=== PATIENT | female | born 1995 | race Two or more races ===

== ENCOUNTER 2021-12-10 13:08 | Inpatient (IN) | payer MEDICAID, OTHER ==
[~2021-12-10] VITALS: Ht 167.6 cm; Wt 95.5 kg
[2021-12-10] MEDS ORDERED: OLANZapine 5 MG RAPDIS TABLET PO PRN (14:30)
[2021-12-10] MEDS: LORazepam 2 MG TABLET PO PRN (16:01)
[2021-12-10] MEDS ORDERED: LORazepam 2 MG/ML VIAL IM ONE (16:15)
[2021-12-10] MEDS ORDERED: HALOPERIDOL LACTATE 5 MG/ML VIAL IM ONE (16:15)
[2021-12-10] MEDS ORDERED: DiphenhydrAMINE HCL 50 MG/ML VIAL IM ONE (16:15)
[2021-12-10 17:32] LABS: COVID AG,FIA SOURCE NASAL SWAB
[2021-12-10 22:22] VITALS: BP 109/55
[2021-12-10 22:24] VITALS: BP 109/55
[2021-12-11 00:19] VITALS: BP 102/61
[2021-12-11 07:02] LABS: BASOPHILS % (AUTO) 0.9 % (0.0-2.0); EOSINOPHILS % (AUTO) 2.1 % (1.0-6.0); HEMATOCRIT 38.4 % (36-46); LYMPHOCYTES # (AUTO) 1.3 K/uL (1.0-4.8); LYMPHOCYTES % (AUTO) 26.7 % (22.0-44.0); MEAN CORPUSCULAR HEMOGLOBIN 28.7 pg (26.0-34.0); MEAN CORPUSCULAR HGB CONC 33.9 G/dL (31.0-37.0); MEAN CORPUSCULAR VOLUME 85 fL (80-100); MONOCYTES # (AUTO) 0.4 K/uL (0.1-1.0); MONOCYTES % (AUTO) 8.1 % (2.0-9.0); NEUTROPHILS # (AUTO) 3.1 K/uL (1.8-7.7); NEUTROPHILS % (AUTO) 62.2 % (40.0-70.0); PLATELET COUNT (AUTO) 275 K/uL (150-450); RED BLOOD CELL COUNT(AUTO) 4.53 MIL/uL (4.00-5.20); RED CELL DISTRIBUTION WIDTH 14.8 % (11.5-14.5)
[2021-12-11 07:07] LABS: ANION GAP 6 mmol/L (8-16); CALCIUM, TOTAL 8.3 mg/dL (8.8-10.5); CARBON DIOXIDE 28 mmol/L (22-29); CHLORIDE 105 mmol/L (98-107); CREATININE 0.66 mg/dL (0.60-1.30); GLOMERULAR FILTR. RATE CALC > 60 mL/min (>60); GLUCOSE,RANDOM 83 mg/dL (70-110); POTASSIUM 3.7 mmol/L (3.5-5.1); SODIUM SERUM 139 mmol/L (136-145); UREA NITROGEN, BLOOD 11 mg/dL (7-18)
[2021-12-11] MEDS ORDERED: LOPERAMIDE HCL 2 MG CAPSULE PO PRN (08:15)
[2021-12-11] MEDS ORDERED: MAGNESIUM HYDROXIDE SUSPENSION 30 ML UDCUP PO PRN (08:15)
[2021-12-11] MEDS ORDERED: IBUPROFEN 600 MG TABLET PO PRN (08:15)
[2021-12-11] MEDS ORDERED: ONDANSETRON HCL 4 MG TABLET PO PRN (08:15)
[2021-12-11] MEDS ORDERED: BENZOCAINE/MENTHOL LOZENGE PO PRN (08:15)
[2021-12-11] MEDS ORDERED: MAG HYDROX/AL HYDROX/SIMETH ES 30 ML SUSPENSION UDCUP PO PRN (08:15)
[2021-12-11] MEDS ORDERED: PETROLATUM,WHITE 28 GM JELLY TP PRN (08:15)
[2021-12-11] MEDS ORDERED: CloNIDine HCL 0.1 MG TABLET PO PRN (08:15)
[2021-12-11] MEDS ORDERED: ALBUTEROL SULFATE HFA 90 MCG/PUFF 8 GM INHALER IH PRN (08:15)
[2021-12-11] MEDS ORDERED: BACITRACIN 28 GM OINTMENT TP PRN (08:15)
[2021-12-11] MEDS ORDERED: OMEPRAZOLE 20 MG CAPSULE PO PRN (08:15)
[2021-12-11] MEDS ORDERED: ACETAMINOPHEN 325 MG TABLET PO PRN (08:15)
[2021-12-11] MEDS ORDERED: DOCUSATE SODIUM 100 MG CAPSULE PO PRN (08:15)
[2021-12-11 17:10] VITALS: BP 102/67
[2021-12-12 05:52] VITALS: BP 113/68
[2021-12-12 08:30] VITALS: BP 126/78
[2021-12-12 16:18] VITALS: BP 112/70
[2021-12-12] MEDS: RisperiDONE 1 MG TABLET PO SCH (16:29)
[2021-12-13] MEDS: RisperiDONE 1 MG TABLET PO SCH ×2 (09:00→17:00)
[2021-12-13] MEDS ORDERED: DiphenhydrAMINE HCL 50 MG/ML VIAL IM ONE (15:30)
[2021-12-13] MEDS ORDERED: LORazepam 2 MG/ML VIAL IM ONE (15:30)
[2021-12-13] MEDS ORDERED: HALOPERIDOL LACTATE 5 MG/ML VIAL IM ONE (15:30)
[2021-12-13 17:30] VITALS: BP 137/87
[2021-12-14 00:40] VITALS: BP 118/74
[2021-12-14 08:13] VITALS: BP 118/62
[2021-12-14] MEDS: RisperiDONE 1 MG TABLET PO SCH ×2 (08:56→17:00)
[2021-12-14 17:30] VITALS: BP 114/70
[2021-12-15 00:55] VITALS: BP 110/64
[2021-12-15 08:28] VITALS: BP 118/74
[2021-12-15] MEDS: RisperiDONE 1 MG TABLET PO SCH ×2 (08:29→17:00)
[2021-12-15 16:18] VITALS: BP 135/80
[2021-12-16 05:16] VITALS: BP 118/72
[2021-12-16] MEDS: RisperiDONE 1 MG TABLET PO SCH ×2 (09:00→17:00)
[2021-12-16 16:10] VITALS: BP 137/91
[2021-12-16] MEDS: ZOLPIDEM TARTRATE 10 MG TABLET PO PRN (22:19)
[2021-12-17 00:52] VITALS: BP 131/81
[2021-12-17] MEDS: RisperiDONE 1 MG TABLET PO SCH ×2 (08:04→16:58)
[2021-12-17] MEDS: LORazepam 2 MG TABLET PO PRN ×2 (12:25→21:48)
[2021-12-17 16:44] VITALS: BP 118/89
[2021-12-17] MEDS: ZOLPIDEM TARTRATE 10 MG TABLET PO PRN (20:52)
[2021-12-18] MEDS: RisperiDONE 1 MG TABLET PO SCH ×2 (08:24→17:00)
[2021-12-18 09:24] VITALS: BP 113/63
[2021-12-18] MEDS ORDERED: LORazepam 2 MG/ML VIAL ONE (12:31)
[2021-12-18] MEDS ORDERED: HALOPERIDOL LACTATE 5 MG/ML VIAL ONE (12:32)
[2021-12-18] MEDS ORDERED: HALOPERIDOL LACTATE 5 MG/ML VIAL IM ONE (12:45)
[2021-12-18] MEDS ORDERED: DiphenhydrAMINE HCL 50 MG/ML VIAL IM ONE (12:45)
[2021-12-18] MEDS ORDERED: LORazepam 2 MG/ML VIAL IM ONE (12:45)
[2021-12-18 16:38] VITALS: BP 118/73
[2021-12-19 00:03] VITALS: BP 114/70
[2021-12-19 08:16] VITALS: BP 122/79
[2021-12-19] MEDS: RisperiDONE 1 MG TABLET PO SCH ×2 (08:31→16:02)
[2021-12-19 16:20] VITALS: BP 109/78
[2021-12-19] MEDS: ZOLPIDEM TARTRATE 10 MG TABLET PO PRN (22:18)
[2021-12-20 00:30] VITALS: BP 102/71
[2021-12-20] MEDS: LORazepam 2 MG TABLET PO PRN ×3 (05:30→16:05)
[2021-12-20] MEDS: RisperiDONE 1 MG TABLET PO SCH ×2 (08:12→16:05)
[2021-12-20 08:16] VITALS: BP 118/82
[2021-12-20] MEDS ORDERED: NICOTINE 21 MG/24 HOUR PATCH TD PRN (14:15)
[2021-12-20 16:43] VITALS: BP 138/75
[2021-12-21 00:21] VITALS: BP 125/70
[2021-12-21] MEDS: LORazepam 2 MG TABLET PO PRN (02:00)
[2021-12-21] MEDS: ZOLPIDEM TARTRATE 10 MG TABLET PO PRN (02:00)
[2021-12-21] MEDS: RisperiDONE 1 MG TABLET PO SCH (08:26)
[2021-12-21 08:41] VITALS: BP 114/66
[2021-12-21] MEDS ORDERED: RISP0.5T39 PO (10:12)
== END 2021-12-21 13:37 | disposition home or self-care (01) | DRG 753 ==
LOC: EMS 13:08 → B3A 15:54 → UNDOADMIN 15:54
PROVIDERS: ADMIT Psychiatry & Neurology Psychiatry; ATTEND Psychiatry & Neurology Psychiatry
DX: F31.9 Bipolar disorder, unspecified (principal); F22 Delusional disorders; G47.00 Insomnia, unspecified; F41.9 Anxiety disorder, unspecified; K59.00 Constipation, unspecified; F12.10 Cannabis abuse, uncomplicated; F11.10 Opioid abuse, uncomplicated; Z20.822 Contact with and (suspected) exposure to COVID-19; E66.9 Obesity, unspecified; Z91.51 Personal history of suicidal behavior; Z68.33 Body mass index [BMI] 33.0-33.9, adult; Z91.14 Patient's other noncompliance with medication regimen; Z71.6 Tobacco abuse counseling; Z71.51 Drug abuse counseling and surveillance of drug abuser
CPT/HCPCS: 80048; 84703; 85025; 99285; J1200; J1630; J2060

== ENCOUNTER 2023-01-04 22:13 | Emergency (ER) | payer OTHER ==
[~2023-01-04] VITALS: Ht 167.6 cm; Wt 95.0 kg
[~2023-01-04 22:13] MED LIST: RISP0.5T39 PO
[2023-01-05 00:17] LABS: BASOPHILS % (AUTO) 0.5 % (0.0-2.0); EOSINOPHILS % (AUTO) 1.6 % (1.0-6.0); HEMATOCRIT 40.1 % (36-46); HEMOGLOBIN 13.4 g/dL (12.0-16.0); LYMPHOCYTES # (AUTO) 2.6 K/uL (1.0-4.8); LYMPHOCYTES % (AUTO) 45.8 % (22.0-44.0); MEAN CORPUSCULAR HEMOGLOBIN 29.3 pg (26.0-34.0); MEAN CORPUSCULAR HGB CONC 33.4 G/dL (31.0-37.0); MEAN CORPUSCULAR VOLUME 88 fL (80-100); MONOCYTES # (AUTO) 0.4 K/uL (0.1-1.0); MONOCYTES % (AUTO) 7.3 % (2.0-9.0); NEUTROPHILS # (AUTO) 2.5 K/uL (1.8-7.7); NEUTROPHILS % (AUTO) 44.8 % (40.0-70.0); PLATELET COUNT (AUTO) 325 K/uL (150-450); RED BLOOD CELL COUNT(AUTO) 4.58 MIL/uL (4.00-5.20); RED CELL DISTRIBUTION WIDTH 13.9 % (11.5-14.5)
[2023-01-05 00:26] LABS: ANION GAP 14 mmol/L (8-16); CALCIUM, TOTAL 8.5 mg/dL (8.8-10.5); CARBON DIOXIDE 23 mmol/L (22-29); CHLORIDE 105 mmol/L (98-107); CREATININE 0.48 mg/dL (0.60-1.30); GLOMERULAR FILTR. RATE CALC > 60 mL/min (>60); GLUCOSE,RANDOM 96 mg/dL (70-110); POTASSIUM 3.6 mmol/L (3.5-5.1); SODIUM SERUM 142 mmol/L (136-145)
[2023-01-05 00:32] LABS: ALANINE AMINOTRANSFERASE 81 U/L (12-78); ALBUMIN 3.4 g/dL (3.4-5.0); ALKALINE PHOSPHATASE 89 U/L (46-116); ASPARTATE AMINOTRANSFERASE 38 U/L (15-37); BILIRUBIN,TOTAL 0.2 mg/dL (0.1-1.0); TOTAL PROTEIN, SERUM 7.1 g/dL (6.4-8.2)
[2023-01-05 05:40] VITALS: BP 101/50
== END 2023-01-05 07:13 | disposition home or self-care (01) ==
LOC: EDBD 22:16 → MERGE 22:16 → EMS 22:16
DX: F10.129 Alcohol abuse with intoxication, unspecified (principal); Y90.9 Presence of alcohol in blood, level not specified
CPT/HCPCS: 99283; 80053; 85025; 36415; G0480